=== PATIENT | female | born 1980 | race Caucasian/White ===

== ENCOUNTER 2016-06-06 12:58 | Emergency (ER) | payer MEDICAID ==
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
[2016-06-06 14:29] LABS: BLOOD, URINE NEG (NEG); GLUCOSE,URINE NEG (NEG); KETONE, URINE NEG (NEG); NITRITE,URINE NEG (NEG); SQUAMOUS EPITHELIAL CELL URINE 1 /hpf (0-5); URINE COLOR LIGHT-YELLOW (YELLW/STRAW)
[2016-06-06 14:33] LABS: COMMENT (UR) CULT NOT INDICATED; CULTURE IF INDICATED CULT NOT INDICATED
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
[2016-07-11] MEDS ORDERED: BUPR8SUB SL (14:33)
[2016-07-11] MEDS ORDERED: LYRI100C PO (14:33)
[2016-07-11] MEDS ORDERED: NYST15T TOPICAL ×2 (14:34→15:06)
[2016-07-11] MEDS ORDERED: CLIN1CAP6 PO (15:06)
[2016-07-11] MEDS ORDERED: NORE5TAB PO (15:06)
[2016-07-11] MEDS ORDERED: XANA1TAB2 PO ×2 (15:25→15:37)
[2016-07-12] MEDS ORDERED: LYRI100C PO (08:07)
[2016-08-08] MEDS ORDERED: GABA100C4 PO (13:30)
== END 2016-06-06 15:00 | disposition home or self-care (01) ==
LOC: HOBED 12:58
DX: O26.893 Other specified pregnancy related conditions, third trimester (principal); Z3A.39 39 weeks gestation of pregnancy
CPT/HCPCS: 81001; 99284

== ENCOUNTER 2017-08-11 14:33 | Emergency (ER) | payer MEDICAID ==
[~2017-08-11] VITALS: Ht 170.2 cm; Wt 139.5 kg
[~2017-08-11 14:33] MED LIST: BUPR8SUB SL; CLIN300C5 PO; GABA100C4 PO; LYRI100C PO; NORE5TAB PO; NYST15T TOPICAL; XANA1TAB2 PO
[2017-08-11 15:15] VITALS: BP 144/90; PULSE 83; RESP 16; TEMP 98.5; O2SAT 100
[2017-08-11] MEDS ORDERED: PREG300 PO (15:45)
[2017-08-11] MEDS ORDERED: DOXY100C PO (15:45)
[2017-08-11] MEDS ORDERED: BACT800T5 PO (15:45)
[2017-08-11] MEDS ORDERED: PHENAZOPYRIDINE HCL 200 MG TAB PO ONE (15:45)
[2017-08-11 16:44] LABS: BILIRUBIN, URINE NEG (NEG); BLOOD, URINE NEG (NEG); GLUCOSE,URINE NEG (NEG); KETONE, URINE NEG (NEG); NITRITE,URINE NEG (NEG); SQUAMOUS EPITHELIAL CELL URINE <1 /hpf (0-5); URINE COLOR YELLOW (YELLW/STRAW); URINE LEUKOCYTE ESTERASE NEG (NEG)
[2017-08-11] MEDS ORDERED: DIFL150T PO (17:22)
--- NOTE | 2017-08-11 17:23 | PD ---
HPI . Vaginal pain Chief Complaint: Complaint Time Seen by Provider: 15:38 Travel History International Travel<30 days: No Contact w/Intl Traveler<30days: No Traveled to known affect area: No History of Present Illness HPI Patient presents complaining with pain in her vaginal area. Onset 1-1/2 days. She states that she is unable to urinate secondary to severe pain in her vaginal area. She rates the pain 8/10. She states that she was diagnosed with a urinary tract infection on 07/29. PFSH Past Medical History Anxiety: Yes Diminished Hearing: No Fibromyalgia: Yes Genitourinary: Yes (UTI) Immunizations Current: Yes Tetanus Vaccination: Unknown Influenza Vaccination: No ?: Not LMP: 06/30/17 : 6 Para: 6 Past Surgical History Cholecystectomy: Yes Social History Alcohol Use: No Tobacco Use: Yes Substance Use: No Allergies-Medications (Allergen,Severity, Reaction): Coded Allergies: nitrofurantoin (Unverified Allergy, Unknown, 08/11/17) penicillin G (Unverified Allergy, Unknown, 08/11/17) Reported Meds & Prescriptions Reported Meds & Active Scripts Active Xanax (Alprazolam) 1 Mg Tab 1 Mg PO TID PRN FIRST REFILL: Please use sparingly. If needing refills must be seen in clinic by appointment. Reported Doxycycline Hyclate 100 Mg Cap 100 Mg PO BID Bactrim DS (Sulfamethoxazole-Trimethoprim) 800-160 Mg Tab 1 Tab PO BID Lyrica (Pregabalin) 300 Mg Cap 300 Mg PO TID Review of Systems Except as stated in HPI: all other systems reviewed are Neg Genitourinary: Positive: Other (Vaginal pain) Physical Exam Narrative GENERAL: Awake and alert and in no acute distress. SKIN: Warm and dry. HEAD: Normocephalic/atraumatic. EYES: Pupils are equal. Extraocular movements are intact. NECK: Normal range of motion. RESPIRATORY: Nonlabored respirations. : External genitalia appears normal. I do not see any herpetic lesions. There is no redness or swelling. MUSCULOSKELETAL: Atraumatic. NEUROLOGICAL: Nonfocal. PSYCHIATRIC: Appropriate mood and affect. Data Data Last Documented VS Vital Signs Date Time Temp Pulse Resp B/P (MAP) Pulse Ox O2 Delivery O2 Flow Rate FiO2 08/11/17 15:15 98.5 83 16 144/90 (108) 100 Orders Orders Cath For Specimen (08/11/17 15:39) Urinalysis - C+S If Indicated (08/11/17 15:39) Phenazopyridine (Pyridium) (08/11/17 15:45) Labs Laboratory Tests Test 08/11/17 16:15 Urine Color YELLOW Urine Turbidity CLEAR Urine pH 7.0 Urine Specific [place] 1.007 Urine Protein NEG mg/dL Urine Glucose (UA) NEG mg/dL Urine Ketones NEG mg/dL Urine Occult Blood NEG Urine Nitrite NEG Urine Bilirubin NEG Urine Urobilinogen LESS THAN 2.0 MG/DL Urine Leukocyte Esterase NEG Urine RBC 1 /hpf Urine WBC LESS THAN 1 /hpf Urine Squamous Epithelial Cells <1 /hpf Microscopic Urinalysis Comment CATH-CULT NOT IND MDM Medical Decision Making Medical Screen Exam Complete: Yes Emergency Medical Condition: Yes Differential Diagnosis Final differential diagnosis of urinary symptoms includes but is not limited to UTI, kidney stone, pyelonephritis, bacterial vaginosis, yeast infection, urinary retention Narrative Course She is complaining with pain in the external genitalia which is preventing her from urinating. I have ordered a catheter to drain her bladder along with a urinalysis. UA is negative for infection. I will discharge her to home with a [place] in place. I will treat her presumptively for yeast vaginitis. She is to follow-up with her primary care provider next week. Diagnosis Primary Impression: Urinary retention Patient Instructions: Acute Urinary Retention in Women (ED), General Instructions Additional Instructions: Follow-up with your doctor next week for reevaluation Med/Other Pt SpecificInfo: Prescription(s) given Scripts Fluconazole (Diflucan) 150 Mg Tab 150 MG PO ONCE for Infection, #1 TAB 0 Refills Prov: Shilpa Salcedo MD 08/11/17 Disposition: DISCHARGE HOME Condition: Stable Shilpa Salcedo MD Aug 11, 2017 17:23
== END 2017-08-11 18:24 | disposition home or self-care (01) ==
LOC: NEPD 14:33
DX: R33.9 Retention of urine, unspecified (principal); M79.7 Fibromyalgia; Z72.0 Tobacco use
CPT/HCPCS: 51702; 81001